=== PATIENT | female | born 1985 | race Hispanic/Latino ===

== ENCOUNTER 2017-06-17 14:50 | Emergency (ER) | payer MEDICAID ==
[2017-06-17 15:09] LABS: APPEARANCE,URINE Cloudy (CLEAR); BILIRUBIN,URINE Negative (NEGATIVE); COLOR,URINE Yellow (YELLOW); GLUCOSE, URINE (UA) Negative (NEGATIVE); KETONES,URINE Negative (NEGATIVE); LEUKOCYTE ESTERASE ,URINE Large (NEGATIVE); NITRATE,URINE Negative (NEGATIVE); OCCULT BLOOD,URINE Negative (NEGATIVE); PH,URINE 8.5 (5.0-8.0); PROTEIN,URINE Negative (NEGATIVE)
[2017-06-17 15:10] LABS: HCG,QUAL RESULT NEGATIVE (NEGATIVE)
[2017-06-17 15:16] LABS: RBC,URINE None Seen /HPF (0-1); WBC,URINE 26-50 /HPF (0-1)
[2017-06-17 15:17] LABS: BACTERIA,URINE Moderate /HPF (None Seen); RENAL EPITHELIAL CELLS,URINE Rare /HPF (None Seen); TRANSITIONAL EPI CELLS,URINE Few /HPF (None Seen)
== END 2017-06-17 15:26 | disposition home or self-care (01) ==
LOC: EDH 14:50
DX: N39.0 Urinary tract infection, site not specified (principal); Z90.710 Acquired absence of both cervix and uterus; Z98.890 Other specified postprocedural states
CPT/HCPCS: 81001; 81025

== ENCOUNTER 2017-07-01 23:14 | Emergency (ER) | payer MEDICAID ==
[2017-07-02] MEDS ORDERED: CYCLOBENZAPRINE HCL 10 MG TABLET ONE (01:17)
[2017-07-02] MEDS ORDERED: ACETAMINOPHEN EXTRA STRENGTH 500 MG TABLET ONE (01:17)
== END 2017-07-02 01:45 | disposition home or self-care (01) ==
LOC: EDH 23:14
DX: H11.31 Conjunctival hemorrhage, right eye (principal); Z90.710 Acquired absence of both cervix and uterus; Z98.890 Other specified postprocedural states

== ENCOUNTER 2022-12-28 16:10 | Emergency (ER) | payer MEDICAID ==
[~2022-12-28] VITALS: Ht 162.6 cm; Wt 83.9 kg
[2022-12-28 16:11] VITALS: BP 105/66; PULSE 80; RESP 16
[2022-12-28] MEDS ORDERED: IBUPROFEN 600 MG TABLET PO ONE (18:30)
[2022-12-28] MEDS ORDERED: TETANUS/DIPHTHERIA TOXOID [ADULT] 0.5 ML VIAL IM ONE (19:00)
== END 2022-12-28 18:59 | disposition home or self-care (01) ==
LOC: EDH 16:10
DX: S61.012A Laceration without foreign body of left thumb without damage to nail, initial encounter (principal); W45.8XXA Other foreign body or object entering through skin, initial encounter; Y93.89 Activity, other specified; Y92.89 Other specified places as the place of occurrence of the external cause; Y99.8 Other external cause status
CPT/HCPCS: 90471; 90714

== ENCOUNTER 2024-12-07 10:46 | Emergency (ER) | payer MEDICAID ==
[~2024-12-07] VITALS: Ht 160 cm; Wt 88.5 kg
--- NOTE | 2024-12-07 11:04 | ERN ---
ED Note History of Present Illness Stated Complaint: LEFT ANKLE PAIN Chief Complaint: Ankle Problem Time Seen by MD: 10:52 Dictation: PATIENT IS A 39-YEAR-OLD FEMALE HERE WITH COMPLAINTS OF LEFT DISTAL FOOT AND PROXIMAL LATERAL FOOT AND ANKLE ECCHYMOSIS PAIN AFTER SHE SAT ON IT AND BENT HER FOOT ON SATURDAY UNDERNEATH HER. SHE HAS BEEN ABLE TO WALK WITH [place] WEIGHT-BEARING ONLY HAS NOT TAKEN ANYTHING FOR THE PAIN SAID SHE DID NOT GO TO THE HOSPITAL OVER THE WEEKEND BECAUSE SHE JUST TUFT IT OUT. SHE SAW HER DOCTOR THIS MORNING AND SENT HER TO THE EMERGENCY ROOM FOR X-RAYS TO RULE OUT FRACTURE SHE HAS NOT TAKEN ANYTHING PRIOR TO ARRIVAL FOR PAIN Allergies: Coded Allergies: No Known Drug Allergies (Unverified Allergy, Unknown, 09/12/15) Home Meds Active Scripts Ibuprofen (Ibuprofen) 800 Mg Tablet, 800 MG PO Q6H PRN for PAIN, #30 TAB Prov:RAGHAVENDRA KOCH TRAVEL RN 12/07/24 Past Medical History Past Medical History: No Pertinent History Surgical History: Hysterectomy, RN Note Reviewed/Agreed w/PFSH: Yes Review of System Dictation CONSTITUTIONAL: NEGATIVE EXCEPT FOR HPI HEAD/FACE: NEGATIVE EXCEPT FOR HPI EENT: NEGATIVE EXCEPT FOR HPI RESPIRATORY: NEGATIVE EXCEPT FOR HPI GASTROINTESTINAL/ABDOMINAL: NEGATIVE EXCEPT FOR HPI GENITOURINARY: NEGATIVE EXCEPT FOR HPI MUSCULOSKELETAL: NEGATIVE EXCEPT FOR HPI LEFT FOOT AND ANKLE PAIN SWELLING ECCHYMOSIS INTEGUMENTARY: NEGATIVE EXCEPT FOR HPI NEUROLOGICAL/PSYCH: NEGATIVE EXCEPT FOR HPI HEMATOLOGIC/LYMPHATIC: NEGATIVE EXCEPT FOR HPI ALL SYSTEMS NEGATIVE, EXCEPT NOTED ABOVE. 13 POINT REVIEW OF SYSTEMS ASSESSED AND ALL NEGATIVE EXCEPT FOR ABOVE. Initial Vital Sign VS Vital Signs Date Time Temp Pulse Resp B/P (MAP) Pulse Ox O2 Delivery O2 Flow Rate FiO2 12/07/24 10:48 98.1 72 16 165/69 99 Room Air 0 12/07/24 13:14 21 Physical Exam Dictation VITAL SIGNS REVIEWED GENERAL APPEARANCE: ALERT, ORIENTED X 3, MODERATE ACUTE DISTRESS, WELL DEVEL OPED, NOURISHED. WALKING TOUCHED DOWN WEIGHT BEAR TO LEFT FOOT ANKLE HEAD AND FACE: NON-TRAUMATIC. EYES: PERRL, PINK CONJUNCTIVAS, EYELID NO TRAUMA, ANTERIOR CHAMBER WITH ARCUS SENILIS. EARS: PINNAS INTACT AND NO SIGNS OF TRAUMA OR ERYTHEMA EAR CANALS CLEAR AND NO DISCHARGE TM NO ERYTHEMA NOSE: NO DISCHARGE, NO BLEEDING. OROPHARYNX: MOUTH NORMAL, TONGUE PINK, PHARYNX CLEAR,NO ERYTHEMA, TONSILS NO EXUDATES, NO ABSCESSES NOTED, MUCOUS MEMBRANE MOIST NECK: SUPPLE, NON-TENDER, NO THYROMEGALY, NO MASSES, NO JVD, NO BRUITS BREAST:DEFERRED CHEST:NO TENDERNESS, NO CREPITUS, NO PARADOXICAL MOVEMENT, NO RETRACTIONS LUNGS:CLEAR, WELL-VENTILATED, SYMMETRIC, NO RALES, NO WHEEZING, NO RHONCHI, NO STRIDOR, GOOD BREATH SOUNDS BILATERALLY HEART: REGULAR RATE, REGULAR RHYTHM, NO MURMUR, NO GALLOPS VASCULAR: NO PERIPHERAL EDEMA, ABDOMEN: SOFT, POSITIVE BOWEL SOUNDS, NONDISTENDED, NO GUARDING, NONTENDER, NO REBOUND, NO MASSES NO HEPATOMEGALY, NO SPLENOMEGALY, NO CAMPOS'S SIGN, NO HERNIAS. RECTAL: DEFERRED GENITAL: DEFERRED NEUROLOGICAL: NORMAL SPEECH, MOTOR FUNCTION INTACT, SENSORY FUNCTION INTACT MUSCULOSKELETAL: NECK NONTENDER, FULL RANGE OF MOTION, BACK NONTENDER, FULL RANGE OF MOTION, EXTREMITIES: ECCHYMOSIS WITH TENDERNESS SWELLING TO DISTAL FOOT AT MULTIPLE METATARSAL JOINTS AND ECCHYMOSIS SWELLING TO DISTAL LEFT FIBULAR REGION. DECREASED RANGE OF MOTION SECONDARY TO PAIN SKIN: COLOR PINK, DRY, NO TURGOR, NO RASH, NO LACERATIONS, NO ABRASIONS, NO CONTUSIONS. LYMPHATIC: DEFERRED Results (Laboratory/Radiology) Laboratory/Radiology 1250/LEFT FOOT AND ANKLE NEGATIVE FOR FRACTURE SOFT TISSUE SWELLING ONLY Labs Reviewed?: Yes ED Course ED Course Orders Procedure Category Date Status Time Foot Comp 3+Vws Lt RAD 12/07/24 Resulted 11:01 Ankle Comp 3vws Lt RAD 12/07/24 Resulted 11:01 Posterior Ankle Splint GAURI.ER 12/07/24 Complete 11:01 Crutches W/Training CPOE 12/07/24 Transmitted (Er) 11:01 Ibuprofen 800 Mg Tab PHA 12/07/24 Complete (Motrin) 11:30 Current Medications Medications (Trade) Dose Ordered Sig/Roselia Route PRN Reason Start Time Stop Time Status Last Admin Dose Admin Ibuprofen (moTRIN) 800 mg ONCE ONCE PO 12/07/24 11:30 12/07/24 11:31 DC 12/07/24 13:06 Vital Signs Date Time Temp Pulse Resp B/P (MAP) Pulse Ox O2 Delivery O2 Flow Rate FiO2 12/07/24 13:53 97.3 72 19 123/74 97 Room Air* 0 21 12/07/24 13:14 97.0 75 19 132/72 97 Room Air* 0 12/07/24 10:48 98.1 72 16 165/69 99 Room Air 0 1250/LEFT ANKLE AND FOOT X-RAY NEGATIVE. POSTERIOR VOLAR SPLINT PLACED BY TECH WITH WITH NEUROVASCULAR CMS INTACT POST PLACEMENT. CRUTCHES PROVIDED PATIENT REFERRED TO DR. HARRISON FOR FOLLOW UP Medical Decision Making MDM MEDICAL DISCHARGE MAKING BASED ON EMPIRIC TREATMENT FOR FOOT AND ANKLE PAIN. X-RAYS OF LEFT ANKLE AND FOOT NEGATIVE FOR FRACTURE SOFT TISSUE SWELLING ONLY DIAGNOSIS WE WILL BE LEFT FOOT SPRAIN HOME WITH CRUTCHES SPLINT AND FOLLOW UP WITH THE ORTHOPEDICS IBUPROFEN FOR PAIN DX & DISP Disposition: Discharge Departure Impression: Primary Impression: Other sprain of left foot, initial encounter Condition: Stable Scripts Ibuprofen (Ibuprofen) 800 Mg Tablet 800 MG PO Q6H PRN for PAIN, #30 TAB Prov: RAGHAVENDRA KOCH NP 12/07/24 Additional Instructions: FOLLOW-UP WITH PRIMARY CARE PROVIDER IN 1 TO 2 DAYS. TAKE MEDICATIONS DIRECTED HERE IN THE EMERGENCY ROOM. OKAY TO CONTINUE HOME MEDICATIONS UNLESS OTHERWISE DISCUSSED DURING YOUR VISIT IN THE EMERGENCY ROOM TODAY. RETURN TO YOUR NEAREST EMERGENCY ROOM IF SYMPTOMS WORSEN OR IF THERE IS NO IMPROVEMENT. CALL 911 IF YOU NEED IMMEDIATE ASSISTANCE. TAKE TYLENOL OR MOTRIN [id number] NEEDED AND IF NO CONTRAINDICATIONS ARE PRESENT. INCREASE ORAL HYDRATION. A WOUND CULTURE OR URINE CULTURE WAS ORDERED HERE IN THE EMERGENCY ROOM DEPARTMENT PLEASE FOLLOW-UP WITH PRIMARY CARE PROVIDER AND ADVISE THEM TO GET REPEAT PORTS FROM OUR FACILITY. IF YOU HAD ANY ANUPAMA WRAP/SPLINTS THAT WERE APPLIED HERE, PLEASE DO NOT REMOVE THEM UNTIL YOU SEE YOUR PRIMARY CARE OR SPECIALTY. SPLINT/CRUTCHES/NO WEIGHT-BEARING TO LEFT FOOT AND ANKLE UNTIL CLEARED BY ORTHOPEDICS, CALL FOR AN APPOINTMENT IN THE NEXT 1-2 DAYS. TAKE IBUPROFEN EVERY8 HOURS FOR THE NEXT TWO DAYS WITH FOOD FOR PAIN AND SWELLING. Referrals: IMELDA GOLDEN MD (PCP) VINCENT HARRISON DO Time of Disposition: 12:50 I have reviewed the case, and I agree with, Diagnosis and Plan RAGHAVENDRA KOCH NP Dec 07, 2024 11:04 JASON CORONA DO Dec 07, 2024 14:58
[2024-12-07] MEDS ORDERED: IBUP-2071 PO (12:51)
--- NOTE | 2024-12-07 12:56 | HMCIMG ---
EXAM: CR left foot, 3 View. CLINICAL HISTORY: DIFFUSE METATARSAL JOINT PAIN ECCHYMOSIS AFTER BENDING FOOT ELLE COMPARISON: None provided. FINDINGS: BONES: No acute fracture or aggressive appearing osseous lesion. JOINTS: The joint spaces appear within normal limits. No dislocation. SOFT TISSUES: The soft tissues are unremarkable. IMPRESSION: No acute osseous abnormality. /[place]
--- NOTE | 2024-12-07 12:56 | HMCIMG ---
EXAM: CR left ankle, 3 View. CLINICAL HISTORY: DISTAL LEFT LATERAL FIBULAR PAIN ECCHYMOSIS AFTER TWISTING SATURDAY COMPARISON: None provided. FINDINGS: BONES: No acute fracture or aggressive appearing osseous lesion. JOINTS: The joint spaces appear within normal limits. No dislocation. No radiographic evidence of a joint effusion. SOFT TISSUES: The soft tissues are unremarkable. IMPRESSION: No acute osseous abnormality. /[place]
--- NOTE | 2024-12-07 13:20 | NUR ---
LEFT LOWER EXTREMITY PLACED IN A POSTERIOR SPLINT AT THIS TIME, CAP REFILL <3, AND ABLE TO MOVE TOES. PATIENT VOICES NO DISCOMFORT PRESENT AND TOLERATED PROCEDURE WELL. CRUTCHES USE TAUGHT TO PATIENT AND PATIENT RETURNED DEMONSTRATION./STEVE
[2024-12-07 13:53] VITALS: BP 123/74; PULSE 72; RESP 19; TEMP 97.3; O2SAT 97
== END 2024-12-07 13:54 | disposition home or self-care (01) ==
LOC: EDH 10:46
DX: S93.602A Unspecified sprain of left foot, initial encounter (principal); Z90.710 Acquired absence of both cervix and uterus; X58.XXXA Exposure to other specified factors, initial encounter; Y93.89 Activity, other specified; Y92.89 Other specified places as the place of occurrence of the external cause; Y99.8 Other external cause status
CPT/HCPCS: 29515; 73610; 73630; 99284